=== PATIENT | female | born 1990 | race Caucasian/White ===

== ENCOUNTER 2019-02-13 12:49 | Emergency (ER) | payer BC, OTHER ==
[~2019-02-13] VITALS: Ht 165.1 cm; Wt 53.5 kg
[~2019-02-13 12:49] MED LIST: BACITRACIN1 EACH TOPIC; IBUPROFEN600 MG ORAL
[2019-02-13] MEDS ORDERED: NKM (12:54)
--- NOTE | 2019-02-13 13:03 | NUR ---
ED Nurse Note: PT WALKED IN TO ER TODAY FROM HOME. AOX4. PT C/O PERSISTENT COUGH, NASAL CONGESTION, AND SNEEZING X 3 WEEKS. PT AFEBRILE AT BEDSIDE, ORAL TEMP 98.2F. LUNG SOUNDS CLEAR IN ALL LOBES. NO SIGNS OF RESPIRATORY DISTRESS OR RETRACTIONS NOTED.
[2019-02-13 13:06] VITALS: BP 112/72
--- NOTE | 2019-02-13 13:46 | Emergency Room Report ---
History of Present Illness General Chief Complaint: Flu Like Symptoms Source: Patient Present Illness HPI 29-year-old female presents to the emergency department complaining of cough, nasal congestion and rhinorrhea 3 weeks. Patient reports she initially had symptoms for approximately a week and half, she felt better and then her symptoms returned again. Patient reports ill contacts at work several coworkers with similar symptoms. Patient denies fevers or chills she reports having mucus somewhat "stuck" in her throat and states that coughing is worse at night. Denies sore throat, ear pain, high fevers, lethargy, neck pain/ stiffness, irritability, photophobia dehydration, N/V/D. Denies Cp, Palpitations , LOC, AMS, seizures, paresthesias, or changes in Hearing or vision, no Sudden severe CRAMER. Denies hx of smoking, asthma or COPD. Allergies: Coded Allergies: No Known Allergies (Unverified , 06/08/16) Patient History Past Medical History: see triage record Past Surgical History: none Pertinent Family History: none Last Menstrual Period: 2 WEEKS AGO Now: No Reviewed Nursing Documentation: PMH: Agreed; PSxH: Agreed Nursing Documentation-PMH Past Medical History: No Stated History Review of Systems All Other Systems: negative except mentioned in HPI Physical Exam Vital Signs Date Time Temp Pulse Resp B/P (MAP) Pulse Ox O2 Delivery O2 Flow Rate FiO2 02/13/19 12:50 98.1 84 19 109/67 96 Room Air Sp02 EP Interpretation: reviewed, normal General Appearance: no apparent distress, alert, GCS 15, non-toxic Head: normocephalic, atraumatic Eyes: bilateral eye normal inspection, bilateral eye PERRL ENT: hearing grossly normal, normal pharynx, normal voice, TMs + canals normal , uvula midline, moist mucus membranes, nasal congestion Neck: full range of motion Respiratory: chest non-tender, lungs clear, normal breath sounds, no wheezing, speaking full sentences Cardiovascular #1: regular rate, rhythm Musculoskeletal: back normal, gait/station normal, normal range of motion, non- tender Neurologic: alert, oriented x3, responsive, motor strength/tone normal, sensory intact, speech normal, grossly normal Psychiatric: judgement/insight normal Skin: normal color, no rash, warm/dry, well hydrated Lymphatic: no adenopathy Medical Decision Making PA Attestation Dr. Palm is my supervising physician whom pt. management has been discussed with. Diagnostic Impression: Primary Impression: Viral upper respiratory tract infection with cough Additional Impression: Nasal congestion with rhinorrhea ER Course * Pt. presents to the ED c/o cough congestion bodyaches, fevers, chills and headaches x 3 weeks, went away then came back. Ddx considered but are not limited to URI, pneumonia, PE, strep pharyngitis, meningitis. Vital signs: Pt. is afebrile, the remaining VS are WNL H&PE are most consistent with URI- no meningeal signs, oropharynx is not involved, no evidence of bacterial infection at this time. ORDERS: none required at this time, the diagnosis is clinical ED INTERVENTIONS: None required at this time. --PT. EDUCATION: Discussed antibiotic resistance with inappropriate prescribing of antibiotics for viral illnesses. Discussed signs and symptoms to indicate viral illness versus bacterial illness. DISCHARGE: At this time pt. is stable for d/c to home. Will provide printed patient care instructions, and any necessary prescriptions. Care plan and follow up instructions have been discussed with the patient prior to discharge. Last Vital Signs Date Time Temp Pulse Resp B/P (MAP) Pulse Ox O2 Delivery O2 Flow Rate FiO2 02/13/19 13:06 82 18 Room Air 02/13/19 13:06 98.2 112/72 98 Disposition: HOME, SELF-CARE Condition: Stable Scripts Guaifenesin (Guaifenesin) 1,200 Mg Tab.er.12h 1200 MG PO BID, #20 TAB Prov: Janeen Shipley 02/13/19 Cetirizine Hcl/Pseudoephedrine (ZYRTEC-D TABLET) 1 Each Tab.er.12h 1 EACH ORAL Q12HR, #20 TAB Prov: Janeen Shipley 02/13/19 Codeine/Promethazine Hcl* (PROMETHAZINE-CODEINE SYRUP*) 118 Ml Syrup 5 ML ORAL Q6H PRN for For Cough, #120 ML 0 Refills Prov: Janeen Shipley 02/13/19 Patient Instructions: Upper Respiratory Infection, Adult, [id number] Additional Instructions: Take medications as directed. Follow up with a Primary Care Provider in 3-5 days, even if your symptoms have resolved. --Please review list of primary care clinics, if you do not already have a primary care provider Return sooner to ED if new symptoms occur, or current symptoms become worse. Do not drink alcohol, drive, or operate heavy machinery while taking Cough Syrup as this may cause drowsiness. - Please note that this Emergency Department Report was dictated using [employer] analyst sales operations technology software, occasionally this can lead to erroneous entry secondary to interpretation by the dictation equipment. Janeen Shipley Feb 13, 2019 13:46
[2019-02-13] MEDS ORDERED: GUAIFENESIN1200 MG PO (13:48)
[2019-02-13] MEDS ORDERED: ZYRTEC-D TABLE1 EACH ORAL (13:48)
[2019-02-13] MEDS ORDERED: PROMETHAZINE-C118 M1 ORAL (13:48)
[2019-02-13 14:09] VITALS: BP 114/76
--- NOTE | 2019-02-13 14:09 | NUR ---
ED Nurse Note: PT SITTING PEACEFULLY IN BED IN NAD. AOX4. PRESCRIPTIONS AND DISCHARGE PAPERWORK EXPLAINED TO PT. PT VERBALIZES UNDERSTANDING AND ALL QUESTIONS ANSWERED. PRESCRIPTIONS AND DISCHARGE PAPERWORK GIVEN TO PT AND ID WRISTBAND REMOVED. PT WALKED OUT OF ER WITH STEADY GAIT AND ALL BELONGINGS.
== END 2019-02-13 14:10 | disposition home or self-care (01) ==
LOC: EMR 13:24
DX: J06.9 Acute upper respiratory infection, unspecified (principal); R05 Cough
CPT/HCPCS: 99282